=== PATIENT | female | born 1960 | race Caucasian/White ===

== ENCOUNTER 2016-09-10 18:11 | Inpatient (IN) | payer OTHER ==
--- NOTE | ~2016-09-10 | DS ---
Discharge Summary [facility] [address] [place]. [address] NAME: BOUBACAR ZUÑIGA : 60 STATUS : ADM IN PAT#: [id number] AGE: 55 ADM/REG DATE : 09/10/16 MR#: [id number] REPORT SERV DATE: 09/14/16 DICTATED BY: Colt STARK DATE: 09/14/16 REPORT STATUS : Draft TRANSCRIBED BY: MODL DATE: 09/14/16 ADMISSION DATE: 09/10/2016 DISCHARGE DATE: 09/14/2016 DIAGNOSES AT DISCHARGE: Acute on chronic hypoxic respiratory failure; acute exacerbation of chronic obstructive pulmonary disease; bipolar disorder; chronic pain syndrome; hypokalemia, resolved; demand ischemia; history of Clostridium difficile left-sided colitis. CONSULTS: None. PROCEDURES: None. BRIEF SUMMARY: 55-year-old female patient, admitted initially to intermediate care with exacerbation of COPD and acute on chronic hypoxic respiratory failure, treated with O2 support, IV steroids, and bronchodilator therapy. The patient responded well to treatment, was transitioned to 7 [place], and subsequently transitioned to oral therapy with good result. The patient continued to have crampy abdominal pain that was mild in nature. A CT of the abdomen was obtained, which showed some mild left-sided colitis. Based on its distribution pattern, there was some suggestion of underlying ischemia. The patient had no bleeding and was tolerating a diet without difficulty. The patient was recommended to have outpatient followup with the [facility] and recommended for a complete colonoscopy to evaluate her colon in the next six to eight weeks. She has had a previous colonoscopy, but it has been greater than 10 years. The patient will be discharged home in stable condition on 09/14 to follow up with the [facility] in approximately two weeks. Her discharge medications will be as follows: Neurontin 1800 mg b.i.d.; Protonix 40 daily; potassium chloride 40 daily; sodium bicarb 1300 mg b.i.d.; Pristiq 100 mg daily; prednisone 20 mg daily for three days; Proventil unit dose aerosol q.4 hours p.r.n.; loxapine 5 mg b.i.d.; Flonase one spray each nostril b.i.d.; Novolin 70/30, 30 units daily; multivitamin one daily; Flexeril 10 q.8 hours p.r.n., #30; Lortab 7.5 one q.6 hours p.r.n., #30. Further recommendations for ongoing treatment pending outpatient followup with the [facility]. Of note, the patient's CBC and electrolytes were normal at the time of discharge. She was afebrile with stable vital signs. Of note, greater than 30 minutes was required to prepare discharge. FOR[facility], [facility] Colt Stark M.D. / [id number] Discharge Summary [address] [address] NAME: BOUBACAR ZUÑIGA : 60 STATUS : ADM IN PAT#: [id number] AGE: 55 ADM/REG DATE : 09/10/16 MR#: [id number] REPORT SERV DATE: 09/14/16 DICTATED BY: Colt STARK DATE: 09/14/16 REPORT STATUS : Draft TRANSCRIBED BY: COSMO DATE: 09/14/16 CC: Colt Stark M.D.
--- NOTE | ~2016-09-10 | HP ---
History And Physical [address] [place]. [address] NAME: BOUBACAR ZUÑIGA : 60 STATUS : ADM IN [facility]#: [id number] AGE: 55 ADM/REG DATE : 09/10/16 MR#: [id number] REPORT SERV DATE: 09/11/16 DICTATED BY: REY LOMELI DATE: 09/10/16 REPORT STATUS : Draft TRANSCRIBED BY: MODKaylen DATE: 09/10/16 DATE OF ADMISSION: 09/10/2016 CHIEF COMPLAINT: A 55-year-old female presenting with confusion, shortness of breath, and hypoxia. HISTORY OF PRESENTING ILLNESS: The patient's history was obtained through careful interview with the patient, coupled with review of [facility] and [facility] medical records. The patient states that she has had considerable stress recently. Her roommate for many years, Xi Palacios, was hospitalized and this has caused the patient anxious, distress, and what she describes as worsening of her chronic bipolar disorder. Over the last few nights, she has developed increasing shortness of breath characterized by dyspnea on exertion and she has felt too weak to walk with near falls, and in fact, on the evening of admission, she did fall because of lightheadedness and weakness. She hit her head falling forward on her forehead and also her knees. She describes an aching discomfort, 6/10 severity. Over these last several days, she has had a cough that has been increasingly productive of a green chunky sputum and she has had increasing confusion, subjective fevers, and chills. Because of pain and anxiety, she has been taking "lots and lots" of ibuprofen every day. She has had nausea, but no vomiting. No diarrhea. No actual loss of consciousness or syncope. REVIEW OF SYSTEMS: Otherwise, a 14-point review of systems was obtained and was negative. Negative. PAST MEDICAL HISTORY: 1. COPD. 2. Bipolar disorder 1. 3. Hypertension. 4. Elevated cholesterol. 5. Gastroesophageal reflux disorder. 6. Pain management. 7. C difficile colitis, seen by Dr. Diez. 8. Neuropathy. 9. Pneumonia with right lower lung abscess and empyema in 2013. 10.Polysubstance abuse history. 11.Urinary tract infection. 12.MRSA. PAST SURGICAL HISTORY: 1. Cholecystectomy. History And Physical [address] [place]. [address] NAME: BOUBACAR ZUÑIGA : 60 STATUS : ADM IN PAT#: [id number] AGE: 55 ADM/REG DATE : 09/10/16 MR#: [id number] REPORT SERV DATE: 09/11/16 DICTATED BY: REY LOMELI DATE: 09/10/16 REPORT STATUS : Draft TRANSCRIBED BY: MODL DATE: 09/10/16 2. Appendectomy. 3. Right thoracoscopy with decortication in 2013. 4. Tubal ligation. ALLERGIES: TO DARVON, PENICILLIN, GEODON, GOLYTELY, GLYBURIDE, RESTORIL, NAPROXEN, SULFA, REMERON, AZITHROMYCIN, LUNESTA, GATIFLOXACIN. SOCIAL HISTORY: Quit smoking years ago. Quit alcohol more than 10 years ago. Lives in [place], [place], with her roommate of many years, Xi Palacios. She has no biological children. FAMILY HISTORY: Mother with depression and psychiatric disease. CURRENT MEDICATIONS: Include ProAir; vitamin B; Pristiq 100 mg p.o. daily; Flonase; Neurontin 1800 mg p.o. b.i.d.; Novolin 70/30, 30 units subcutaneous twice a day; nicotine patch; Protonix 40 mg p.o. daily; loxapine 5 mg p.o. b.i.d. PHYSICAL EXAMINATION: VITAL SIGNS: Temperature 99.6, pulse 113, blood pressure 137/71, respiratory rate 24, O2 saturation 80% on room air and 92% on 2 L nasal cannula. GENERAL: A chronically ill-appearing female, in evidence of some distress secondary to shortness of breath and anxiety. HEENT: Pupils equal, round, and reactive to light. No conjunctival pallor. No scleral icterus. Nares are patent. Oropharynx is clear of obstruction. Moist mucous membranes. NECK: Trachea midline. No thyromegaly. LYMPH: No cervical lymphadenopathy. No supraclavicular lymphadenopathy. RESPIRATORY: The patient has predominant inspiratory and expiratory wheezes with harsh upper respiratory rhonchi. No rales on examination. A labored respiratory effort is noted. CARDIOVASCULAR: Tachycardic, regular rhythm. No murmurs, rubs, or gallops. No current extremity edema is appreciated. ABDOMEN: Soft, nontender, nondistended. Normal bowel sounds auscultated throughout. No hepatosplenomegaly. DERMATOLOGICAL: Warm and dry extremities. No pallor. No cyanosis. PSYCHIATRIC: A very animated affect. Anxious, admitting that she feels distressed. She is alert and oriented x3 currently. LABORATORY DATA: White blood cell count 13.7, hemoglobin 9.1, hematocrit 29.6. Sodium 140, potassium 2.8, chloride 111, bicarb 21, BUN 21, creatinine 1.07, glucose 145, lactic acid 0.7. Urinalysis negative for infection. ABG demonstrates pH 7.15, a PaCO2 of 48, a PaO2 of 76, and a bicarb of 16 on 2 L nasal cannula. Lactic acid 0.7. STUDIES: 1. EKG by my own evaluation shows sinus tachycardia. 2. CT scan of the abdomen and pelvis was read as being negative. 3. CT scan of the chest without contrast shows no acute intrathoracic process. ASSESSMENT AND PLAN: History And Physical [address] [address] NAME: BOUBACAR ZUÑIGA : 60 STATUS : ADM IN PAT#: [id number] AGE: 55 ADM/REG DATE : 09/10/16 MR#: [id number] REPORT SERV DATE: 09/11/16 DICTATED BY: REY LOMELI DATE: 09/10/16 REPORT STATUS : Draft TRANSCRIBED BY: COSMO DATE: 09/10/16 1. Hypoxic respiratory failure. Provide supportive care. 2. Chronic obstructive pulmonary disease exacerbation. Place on IV Solu-Medrol, duo nebulizers, doxycycline. 3. Respiratory and metabolic acidosis with negative lactic acid. I believe this is a combined hypercapnia from chronic obstructive pulmonary disease coupled with salicylate overmedication/toxicity by history. We will place on IV bicarb drip. Provide supportive care. Hold nonsteroidal antiinflammatory drugs. 4. Bipolar disorder 1 with anxious distress. Renato Oneal. 5. Systemic inflammatory response syndrome with tachycardia, tachypnea, hypoxia, white blood cell count of 13.7, and subjective fevers and chills. Monitor closely. Check blood cultures. Negative CT scan of the chest. Negative CT scan of the abdomen and pelvis. We will place on doxycycline alone for now for bronchitis and monitor. 6. Hypokalemia. Replace potassium. Check magnesium). [facility]/MODL Rey Lomeli M.D. / [id number] CC: Colt Stark M.D.
[2016-09-10 16:23] LABS: ASCORBIC ACID (UR NOT ORDER) NEG (NEG); BILIRUBIN, URINE NEGATIVE (NEG); ER URINALYSIS TAT 0 Hrs 08 Mins; KETONE, URINE NEGATIVE (NEG); LEUKOCYTE ESTERASE(NOT OR NEG (NEG); NITRITE (URINE) NEG (NEG); WBC (NOT ORDERED) (RFLEX) 1 (0-5)
[2016-09-10 16:27] LABS: BASOPHILS 0.4 %; BASOPHILS ABSOLUTE 0.05 10/3/uL (0.0-0.16); EOSINOPHILS 0.5 %; EOSINOPHILS ABSOLUTE 0.07 10/3/uL (0.0-0.53); ER CBC TAT 0 Hrs 10 Mins; HEMATOCRIT 29.2 % (36.0-48.0); HEMOGLOBIN 9.7 g/dL (12.0-16.0); IMMATURE GRANULOCYTES 0.3 %; IMMATURE GRANULOCYTES ABSOLUTE 0.04 10/3/uL (0.0-0.11); LYMPHOCYTES 9.2 %; LYMPHOCYTES ABSOLUTE 1.26 10/3/uL (0.67-4.30); MEAN CORPUSCULAR HEMOGLOB 27.2 pg (26.0-34.0); MEAN PLATELET VOLUME 8.8 fL (9.2-13.0); MONOCYTES 7.8 %; MONOCYTES ABSOLUTE 1.07 10/3/uL (0.21-1.20); NEUTROPHILS 81.8 %; NEUTROPHILS ABSOLUTE 11.17 10/3/uL (2.02-8.40); PLATELET COUNT 474 10/3/uL (150-400); RBC DISTRIBUTION WIDTH 17.2 % (12.0-16.0); RED CELL COUNT 3.57 10/6/uL (4.0-5.6); WHITE BLOOD CELLS 13.7 10/3/uL (4.5-10.5)
[2016-09-10 16:28] LABS: MANUAL DIFF NO %; MEAN CORPUS HGB CONC 33.2 g/dL (32.0-36.0); MEAN CORPUSCULAR VOLUME 81.8 fL (80-100)
[2016-09-10 16:32] LABS: INTERNATIONAL NORMAL RATI 1.1 UNITS (-); PROTIME (NOT ORD) 13.7 SEC (12.0-14.5)
[2016-09-10 16:33] LABS: PARTIAL THROMBO TIME 27.4 SEC (22.5-37.2)
[2016-09-10 16:43] LABS: BUN (BLOOD UREA NITROGEN) 31 MG/DL (6-23); CALCIUM, SERUM 9.2 MG/DL (8.5-10.4); CHLORIDE, SERUM 111 MMOL/L (96-112); CO2 (CARBON DIOXIDE) 21 MMOL/L (24-34); CREATININE 1.07 MG/DL (0.55-1.02); GFR AFRICAN AMERICAN 68 ML/MIN (>=60); GFR NON AFRICAN AMERICAN 58 ML/MIN (>=60); GLUCOSE, SERUM 143 MG/DL (60-99); SGOT(AST) 13 U/L (5-40); SGPT(ALT) 14 U/L (5-65); SODIUM, SERUM 140 MMOL/L (135-148); TOTAL PROTEIN 6.3 G/DL (6.0-8.5)
[2016-09-10 16:44] LABS: A/G RATIO 0.8 (0.7-1.9); ALBUMIN 2.7 G/DL (3.5-5.0); ALKALINE PHOSPHATASE 153 U/L (45-117); GLOBULIN 3.6 G/DL (2.5-4.1); LACTATE 0.7 MMOL/L (0.3-2.4); POTASSIUM, SERUM 2.8 MMOL/L (3.5-5.3); TOTAL BILIRUBIN 0.4 MG/DL (0-1.2)
[2016-09-10 17:21] LABS: PROCALCITONIN 0.47 ng/mL (<0.5)
[2016-09-10 17:56] LABS: ALLENS TEST Pos; CARBOXYHEMOGLOBIN 1.9 % (0-3); DEVICE NC; HCO3 (ACTUAL BICARBONATE) 16.4 MEQ/L (23-27); HEMOBLOGIN CONTENT 9.7 G/DL (12-16); INSTRUMENT SERIAL # 8087; METHEMOGLOBIN 0.3 % (0-3); O2 CONTENT 12.4 VOL% (18-24); PCO2 (CO2 TENSION) 49 MMHG (35-45); PO2 (O2 TENSION) 76 MMHG (79-93); SAMPLE Arterial; pH 7.15 (7.37-7.43)
[~2016-09-10 18:11] MED LIST: ALBUTEROL5 INH; ASAB PO; AT25 PO; BEN25 PO; BUSPAR15 M1 PO; CYANO1000T PO; CYMBALTA20 PO; FISH-EPA1000 MG PO; FLAG500TAB PO; FLONASE NAS; FLORASTOR250 MG PO; GLUCOPHAGE1000 MG PO; GLUCPH PO; HABIT14 TOP; HUMALOG; IBU800 PO; INSNOV7030 SC; INSNOVR SC; INSULIN; KLONO1 PO; LANTUS SC; LATUDA40 MG PO; LIDOCAINE 4% CREAM TOP; LIDODERM TOP; LIPITOR80 MG PO; LOP25 PO; LORTAB 5 PO; LORTAB10 PO; LOXAPINE PO; LYRICA75 PO; MAGOX4 PO; MOTRIN IB200 MG PO; NEUR600 PO; NEUR800 PO; NICODERM C14 MG/24 H TOP; NORCO1 TA1 PO; NOVOLOGMIX SC; OMNICEF300 PO; PR25 PO; PRAVACHOL40 MG PO; PRILO PO; PRIN20 PO; PRISTIQ100 MG PO; PRISTIQ50 MG PO; PROAIR HFA INH; PROAIR HFA PO; PROTONIX PO; PROVENTSOL INH; PROVHFA; PROVHFA INH; PROZ10 PO; PROZAC PO; RANITIDINE300 MG PO; SEROQUEL; SEROQUEL XR400 MG PO; SEROQUEL1C PO; SEROQUEL200 MG PO; SOMA250 MG OR; SONATA10 MG PO; ULTRAM50 PO; VANCOCIN HCL125 MG PO; VITAMIN B PO; VITAMIN D1000 UNI1 PO; VITAMIN D31000 UNIT PO; ZANTAC 75 PO; ZANTAC300 MG PO; ZESTRIL5 MG PO; ZYRTEC ALLGY10 MG PO; ZYVOXPO PO
[2016-09-10 19:22] LABS: DIRECT BILIRUBIN < 0.1 MG/DL (0.0-0.4); INDIRECT BILIRUBIN(NOT ORDER) 0.3 MG/DL (0.1-0.9)
[2016-09-10 20:51] LABS: BE (BASE EXCESS) -12.2 MEQ/L (0 +/- 2.5); CARBOXYHEMOGLOBIN 2.8 % (0-3); DEVICE NC; HCO3 (ACTUAL BICARBONATE) 13.5 MEQ/L (23-27); HEMOBLOGIN CONTENT 10.3 G/DL (12-16); INSTRUMENT SERIAL # 8087; METHEMOGLOBIN 0.3 % (0-3); O2 CONTENT 13.8 VOL% (18-24); PCO2 (CO2 TENSION) 30 MMHG (35-45); PO2 (O2 TENSION) 111 MMHG (79-93); SAMPLE Arterial; pH 7.27 (7.37-7.43)
[2016-09-10 22:04] LABS: LACTATE 0.7 MMOL/L (0.3-2.4)
[2016-09-11 01:41] LABS: POTASSIUM, SERUM 3.4 MMOL/L (3.5-5.3)
[2016-09-11 05:00] LABS: BASOPHILS 0.1 %; BASOPHILS ABSOLUTE 0.01 10/3/uL (0.0-0.16); EOSINOPHILS 0 %; HEMOGLOBIN 8.7 g/dL (12.0-16.0); IMMATURE GRANULOCYTES 0.3 %; IMMATURE GRANULOCYTES ABSOLUTE 0.03 10/3/uL (0.0-0.11); LYMPHOCYTES 5.8 %; LYMPHOCYTES ABSOLUTE 0.69 10/3/uL (0.67-4.30); MEAN CORPUS HGB CONC 33.3 g/dL (32.0-36.0); MEAN CORPUSCULAR HEMOGLOB 26.9 pg (26.0-34.0); MEAN CORPUSCULAR VOLUME 80.6 fL (80-100); MEAN PLATELET VOLUME 8.7 fL (9.2-13.0); MONOCYTES 2.8 %; MONOCYTES ABSOLUTE 0.34 10/3/uL (0.21-1.20); NEUTROPHILS ABSOLUTE 10.88 10/3/uL (2.02-8.40); PLATELET COUNT 457 10/3/uL (150-400); RBC DISTRIBUTION WIDTH 17.5 % (12.0-16.0); RED CELL COUNT 3.24 10/6/uL (4.0-5.6)
[2016-09-11 05:02] LABS: HEMATOCRIT 26.1 % (36.0-48.0); MANUAL DIFF NO %
[2016-09-11 05:08] LABS: ALLENS TEST Pos; BE (BASE EXCESS) 16.9 MEQ/L (0 +/- 2.5); CARBOXYHEMOGLOBIN 1.6 % (0-3); DEVICE NC; HCO3 (ACTUAL BICARBONATE) 42.6 MEQ/L (23-27); HEMOBLOGIN CONTENT 6.9 G/DL (12-16); INSTRUMENT SERIAL # 8083; METHEMOGLOBIN 0.1 % (0-3); O2 CONTENT 8.7 VOL% (18-24); OPERATOR ID 33214; PCO2 (CO2 TENSION) 63 MMHG (35-45); PO2 (O2 TENSION) 56 MMHG (79-93); SAMPLE Arterial; pH 7.45 (7.37-7.43)
[2016-09-11 05:23] LABS: A/G RATIO 0.7 (0.7-1.9); ALBUMIN 2.4 G/DL (3.5-5.0); ALKALINE PHOSPHATASE 135 U/L (45-117); BUN (BLOOD UREA NITROGEN) 24 MG/DL (6-23); CALCIUM, SERUM 8.6 MG/DL (8.5-10.4); CHLORIDE, SERUM 110 MMOL/L (96-112); CO2 (CARBON DIOXIDE) 17 MMOL/L (24-34); CREATININE 0.88 MG/DL (0.55-1.02); GFR AFRICAN AMERICAN 86 ML/MIN (>=60); GFR NON AFRICAN AMERICAN 74 ML/MIN (>=60); GLOBULIN 3.4 G/DL (2.5-4.1); GLUCOSE, SERUM 245 MG/DL (60-99); POTASSIUM, SERUM 3.3 MMOL/L (3.5-5.3); SGOT(AST) 15 U/L (5-40); SGPT(ALT) 12 U/L (5-65); SODIUM, SERUM 140 MMOL/L (135-148); TOTAL BILIRUBIN 0.2 MG/DL (0-1.2); TOTAL PROTEIN 5.8 G/DL (6.0-8.5)
[2016-09-11 05:24] LABS: TROPONIN I 0.22 NG/ML (<0.05)
[2016-09-11 05:28] LABS: INTERNATIONAL NORMAL RATI 1.2 UNITS (-); PARTIAL THROMBO TIME 35.3 SEC (22.5-37.2); PROTIME (NOT ORD) 15.1 SEC (12.0-14.5)
[2016-09-11 06:02] LABS: PROCALCITONIN 0.24 ng/mL (<0.5)
[2016-09-11 08:52] LABS: ALLENS TEST Pos; BE (BASE EXCESS) -8.6 MEQ/L (0 +/- 2.5); CARBOXYHEMOGLOBIN 0.4 % (0-3); DEVICE NC; HCO3 (ACTUAL BICARBONATE) 17.3 MEQ/L (23-27); HEMOBLOGIN CONTENT 9.3 G/DL (12-16); INSTRUMENT SERIAL # 8083; METHEMOGLOBIN 0.3 % (0-3); O2 CONTENT 12.6 VOL% (18-24); OPERATOR ID 13624; PCO2 (CO2 TENSION) 37 MMHG (35-45); PO2 (O2 TENSION) 89 MMHG (79-93); SAMPLE Arterial; pH 7.28 (7.37-7.43)
[2016-09-12 05:17] LABS: BASOPHILS 0.5 %; BASOPHILS ABSOLUTE 0.04 10/3/uL (0.0-0.16); EOSINOPHILS 1.9 %; EOSINOPHILS ABSOLUTE 0.16 10/3/uL (0.0-0.53); HEMATOCRIT 27.6 % (36.0-48.0); IMMATURE GRANULOCYTES 0.2 %; IMMATURE GRANULOCYTES ABSOLUTE 0.02 10/3/uL (0.0-0.11); LYMPHOCYTES 19.7 %; LYMPHOCYTES ABSOLUTE 1.68 10/3/uL (0.67-4.30); MEAN CORPUS HGB CONC 32.6 g/dL (32.0-36.0); MEAN CORPUSCULAR HEMOGLOB 26.4 pg (26.0-34.0); MEAN CORPUSCULAR VOLUME 80.9 fL (80-100); MEAN PLATELET VOLUME 8.4 fL (9.2-13.0); MONOCYTES 12.5 %; MONOCYTES ABSOLUTE 1.07 10/3/uL (0.21-1.20); NEUTROPHILS 65.2 %; NEUTROPHILS ABSOLUTE 5.56 10/3/uL (2.02-8.40); PLATELET COUNT 464 10/3/uL (150-400); RBC DISTRIBUTION WIDTH 17.6 % (12.0-16.0); RED CELL COUNT 3.41 10/6/uL (4.0-5.6); WHITE BLOOD CELLS 8.5 10/3/uL (4.5-10.5)
[2016-09-12 05:18] LABS: MANUAL DIFF NO %
[2016-09-12 05:38] LABS: PHOSPHORUS, SERUM 1.6 MG/DL (2.5-4.5)
[2016-09-13 05:51] LABS: CHLORIDE, SERUM 111 MMOL/L (96-112); CREATININE 0.82 MG/DL (0.55-1.02); GFR AFRICAN AMERICAN 93 ML/MIN (>=60); GFR NON AFRICAN AMERICAN 81 ML/MIN (>=60); SODIUM, SERUM 144 MMOL/L (135-148)
[2016-09-13 06:01] LABS: BUN (BLOOD UREA NITROGEN) 16 MG/DL (6-23); CO2 (CARBON DIOXIDE) 22 MMOL/L (24-34); GLUCOSE, SERUM 151 MG/DL (60-99); POTASSIUM, SERUM 2.8 MMOL/L (3.5-5.3)
[2016-09-14 05:46] LABS: BUN (BLOOD UREA NITROGEN) 15 MG/DL (6-23); CHLORIDE, SERUM 112 MMOL/L (96-112); CO2 (CARBON DIOXIDE) 26 MMOL/L (24-34); CREATININE 0.75 MG/DL (0.55-1.02); GFR AFRICAN AMERICAN 104 ML/MIN (>=60); GFR NON AFRICAN AMERICAN 90 ML/MIN (>=60); GLUCOSE, SERUM 153 MG/DL (60-99); POTASSIUM, SERUM 3.8 MMOL/L (3.5-5.3); SODIUM, SERUM 142 MMOL/L (135-148)
[2016-09-14] MEDS ORDERED: KLOR-CON 1010 MEQ PO (11:17)
[2016-09-14] MEDS ORDERED: SODBICAR10 PO (11:18)
[2016-09-14] MEDS ORDERED: NORCO1 TA2 PO (11:19)
[2016-09-14] MEDS ORDERED: P20 PO (11:22)
[2016-09-14] MEDS ORDERED: FLEX PO (11:38)
== END 2016-09-14 14:19 | disposition home or self-care (01) | DRG 189 ==
LOC: ER 18:11 → IMCU 22:26 → 7NO 09-12 13:56
PROVIDERS: Emergency Medicine; Hospitalist; Internal Medicine
DX: J96.21 Acute and chronic respiratory failure with hypoxia (principal); I24.8 Other forms of acute ischemic heart disease; J44.1 Chronic obstructive pulmonary disease with (acute) exacerbation; F31.9 Bipolar disorder, unspecified; E87.6 Hypokalemia; G89.4 Chronic pain syndrome; Z86.19 Personal history of other infectious and parasitic diseases; F41.9 Anxiety disorder, unspecified; E78.00 Pure hypercholesterolemia, unspecified; K21.9 Gastro-esophageal reflux disease without esophagitis; Z87.01 Personal history of pneumonia (recurrent); Z86.14 Personal history of Methicillin resistant Staphylococcus aureus infection; Z88.0 Allergy status to penicillin; Z88.2 Allergy status to sulfonamides; Z88.5 Allergy status to narcotic agent; Z90.49 Acquired absence of other specified parts of digestive tract; Z87.891 Personal history of nicotine dependence; Z81.8 Family history of other mental and behavioral disorders
CPT/HCPCS: 36600; 71010; 71275; 74177; 80048; 80053; 81001; 82248; 82805; 82962; 83605; 83690; 83735; 83880; 84100; 84132; 84145; 84443; 84484; 85025; 85610; 85730; 87040; 87449; 87641; 93005; 94640; 94660; 96365; 96375; 99291; A9270-GY; J0360; J1956; J2405; J2920; J2930; J3475; Q9967